=== PATIENT | female | born 1985 | race Caucasian/White ===

== ENCOUNTER 2017-12-01 14:04 | Emergency (ER) | payer MEDICAID, MEDICARE ==
[~2017-12-01] VITALS: Ht 170.2 cm; Wt 60.6 kg
[2017-12-01 14:07] VITALS: BP 116/77
[2017-12-01] MEDS ORDERED: LIDOCAINE 2%, 20ML SQ ONE (14:30)
[2017-12-01] MEDS ORDERED: DIPH,PERTUSS(ACELL),TET VAC/PF 0.5 ML IM-VACC ONE ×2 (14:30→14:42)
[2017-12-01] MEDS ORDERED: L.E.T SOLUTION TP ONE ×2 (14:43→15:00)
[2017-12-01] MEDS ORDERED: BACITRACIN ZINC OINT 500U/GM, 0.9 GM ONE ×2 (14:44→14:54)
[2017-12-01] MEDS ORDERED: BACITRACIN ZINC OINT 500U/GM, 0.9 GM TP ONE (15:00)
== END 2017-12-01 15:29 | disposition home or self-care (01) ==
LOC: ED 15:23
DX: S70.312A Abrasion, left thigh, initial encounter (principal); W01.0XXA Fall on same level from slipping, tripping and stumbling without subsequent striking against object, initial encounter; Y93.89 Activity, other specified; Y92.89 Other specified places as the place of occurrence of the external cause; Y99.8 Other external cause status
CPT/HCPCS: 90471; 90715

== ENCOUNTER 2020-01-01 12:11 | Emergency (ER) | payer SELFPAY ==
[~2020-01-01] VITALS: Ht 170.2 cm; Wt 68.2 kg
--- NOTE | 2020-01-01 12:29 | NUR ---
PT FORREST [facility] FROM HOME FOR RLQ ABD PAIN THAT RADIATES TO UPPER ABD & BACK, STARTING AROUND 0800 THIS AM. +NAUSEA; NO VOMITING. PT REPORTS SHE'S HAD ABD PAIN IN THE PAST, "BUT NOTHING THAT'S LASTED THIS LONG". RECEIVED 50MCG FENTANYL AND 4MG ZOFRAN EN ROUTE. PAIN 2/10 UPON ARRIVAL TO ED. PT A&OX4, CALM, VSS. EKG DONE IMMEDIATELY AND ERP WAS IN TO SEE PTLuis PEDROZA AT BS NOW.
--- NOTE | 2020-01-01 12:54 | NUR ---
PT AMBULATED TO BR WITHOUT DIFFICULTY. INSTRUCTED ON CLEAN CATCH URINE SAMPLE.
[2020-01-01 13:29] LABS: MICROSCOPIC INDICATED
[2020-01-01 13:30] LABS: ALKALINE PHOSPHATASE 62 U/L (45-117); BASOPHILS # (AUTO) 0.03 x10^3/uL (0-0.1); BASOPHILS % (AUTO) 0 % (0-1); BILIRUBIN,TOTAL 0.5 mg/dL (0.2-1.0); EOSINOPHILS # (AUTO) 0.04 x10^3/uL (0-0.4); EOSINOPHILS % (AUTO) 0 % (1-7); LYMPHOCYTES # (AUTO) 1.09 x10^3/uL (1-3.4); LYMPHOCYTES % (AUTO) 10 % (22-44); MD NO; MEAN CORPUSCULAR HEMOGLOBIN 30.9 pg (27.0-34.8); MEAN CORPUSCULAR HGB CONC 32.9 g/dL (32.4-35.8); MONOCYTES # (AUTO) 0.27 x10^3/uL (0.2-0.8); MONOCYTES % (AUTO) 2 % (2-9); NEUTROPHILS # (AUTO) 9.88 x10^3/uL (1.8-6.8); NEUTROPHILS % (AUTO) 87 % (42-75); PLATELET COUNT 344 x10^3/uL (130-400); RED BLOOD COUNT 4.62 x10^6/uL (3.82-5.3); RED CELL DISTRIBUTION WIDTH 13.2 % (9.6-15.2); TOTAL PROTEIN 7.7 g/dL (6.4-8.2)
[2020-01-01 13:32] LABS: ALANINE AMINOTRANSFERASE 14 U/L (12-78); ALBUMIN 3.8 g/dL (3.4-5.0); CALCIUM 8.6 mg/dL (8.5-10.1); CHLORIDE 110 mmol/L (98-107); CREATININE 0.92 mg/dL (0.55-1.02)
[2020-01-01 13:34] LABS: ANION GAP 3 mmol/L (5-15)
[2020-01-01] MEDS ORDERED: MORPHINE SULFATE 4 MG/ML, 1ML ONE (13:55)
[2020-01-01] MEDS ORDERED: ONDANSETRON 2MG/ML, 2ML ONE (13:55)
[2020-01-01] MEDS ORDERED: KETOROLAC 30 MG/1 ML ONE (13:55)
[2020-01-01] MEDS ORDERED: KETOROLAC 30 MG/1 ML IVPush ONE (14:00)
[2020-01-01] MEDS ORDERED: MORPHINE SULFATE 4 MG/ML, 1ML IVPush ONE (14:00)
[2020-01-01] MEDS ORDERED: ONDANSETRON 2MG/ML, 2ML IVPush ONE (14:00)
--- NOTE | 2020-01-01 14:07 | NUR ---
PT'S RLQ ABD PAIN INCREASED TO 6/10. ERP NOTIFIED, PT MEDICATED PER ORDERS. RV'WD POC WITH PT.
[2020-01-01 14:48] VITALS: BP 91/56
--- NOTE | 2020-01-01 14:48 | NUR ---
ERP WAS IN FOR RECHECK. WATER & JUICE PROVIDED TO PT. D/C INSTRUCTIONS, MEDS & F/U APPT RV'WD WITH PT, SHE VERBALIZES UNDERSTANDING. RX GIVEN X2. PT AMBULATED OUT OF ED WITH FIANCE WITHOUT DIFFICULTY.
== END 2020-01-01 14:55 | disposition home or self-care (01) ==
LOC: ED 12:57
DX: N13.2 Hydronephrosis with renal and ureteral calculous obstruction (principal); R10.9 Unspecified abdominal pain; R11.0 Nausea; I48.91 Unspecified atrial fibrillation; F17.200 Nicotine dependence, unspecified, uncomplicated; Z90.721 Acquired absence of ovaries, unilateral
CPT/HCPCS: 36415; 74176; 80053; 81001; 84703; 85025; 87086; 93005; 96374; 96375; 99285; J1885; J2270; J2405